=== PATIENT | female | born 1930 | race Asian ===

== ENCOUNTER → 2016-10-30 | Outpatient (CLI) | payer MEDICARE, MEDICAID ==
[~2016-10-30] MED LIST: ASPI-535; DOXA2TAB61; ESOM40CA; ISOS60TA52; NIT3; VERA120T; [UNRECOGNIZED DRUG - CODE]
--- NOTE | 2016-10-30 10:32 | RADRPT ---
PROCEDURE: XR right knee. CLINICAL INDICATION: Knee pain TECHNIQUE: AP weightbearing, PA weightbearing, lateral weightbearing and sunrise views are availa ble for review. are available for review. COMPARISON: None available FINDINGS: There is calcific enthesopathy involving the anterior superior aspect of the patella. There is moder ate to severe osteoarthrosis involving the lateral tibial femoral compartment and mild osteoarthrosi s involving the medial tibial femoral compartment and the patellofemoral compartment. This is associ ated with joint space narrowing, subchondral sclerosis and osteophytosis. The osseous structures are otherwise normal in mineralization, architecture and alignment. No fract ures are identified. No osseous lesions are identified. The soft tissues are unremarkable. IMPRESSION: Calcific enthesopathy involving the anterior superior and anterior inferior aspect of the patella. Moderate to severe osteoarthrosis involving the lateral tibial femoral compartment and mild osteoart hrosis involving the medial tibial femoral compartment and the patellofemoral compartment. RPTAT: HGDB .Toño Sosa MD, MD Date Time Electronically viewed and signed by .Toño Sosa MD, on 10/30/2016 10:32 .B/
== END | disposition home or self-care (01) ==
LOC: HKI 09:05
PROVIDERS: ATTEND Orthopaedic Surgery
DX: M17.0 Bilateral primary osteoarthritis of knee (principal); M25.561 Pain in right knee; M25.562 Pain in left knee
CPT/HCPCS: 73564; G0463

== ENCOUNTER → 2016-12-11 | Outpatient (CLI) | payer MEDICARE, MEDICAID ==
[~2016-12-11] MED LIST changes: +ALEN35TA23 PO; +ATEN100T PO; +ATEN50TA PO; +CRES10 PO; +HYDR-2458 PO; +ISOS30TA5 PO; +NIFE30TA60 PO; +OMEP40CA6 PO; +PRED5 PO; +RANI150T5 PO; +TRAM50TA2 PO
--- NOTE | 2016-12-11 12:12 | RADRPT ---
PROCEDURE: Limited x-ray of both lower extremities. CLINICAL INDICATION: Bilateral leg pain. TECHNIQUE: Single frontal view of both lower extremities was obtained from the hips to the calves. COMPARISON: None. FINDINGS: The hips are not well seen but appear grossly normal with no displaced fracture or dislocation. The re are degenerative changes of both knees with right lateral joint compartment narrowing and left me dial joint compartment narrowing. IMPRESSION: 1. Grossly normal hips. 2. Moderate degenerative changes of both knees. RPTAT: QQ .Jay Penny MD, MD Date Time Electronically viewed and signed by .Jay Penny MD, MD on 12/11/2016 12:11 .R/
== END | disposition home or self-care (01) ==
LOC: HKI 09:13
PROVIDERS: ATTEND Orthopaedic Surgery
DX: M25.561 Pain in right knee (principal); M17.11 Unilateral primary osteoarthritis, right knee
CPT/HCPCS: 77073; G0463

== ENCOUNTER 2016-12-17 09:04 | Inpatient (IN) | payer MEDICARE, OTHER ==
[2016-12-11 12:30] VITALS: BMI 30.1
[~2016-12-17] VITALS: Ht 149.9 cm; Wt 66.7 kg
[2016-12-17] VITALS (27 sets, daily range): BP systolic 145–177; BP diastolic 66–90; PULSE 56–77; RESP 12–17; Ht 149.9 cm; Wt 66.7 kg
[~2016-12-17 09:04] MED LIST changes: -ATEN50TA PO; +CEFAZOLIN 1 GM INJ ONE; +DEXAMETHASONE 4 MG/ML 1 ML INJ ONE; -DOXA2TAB61; +EPHEDrine SULFATE 50 MG/5 ML SYG ONE; -ESOM40CA; +ETOMIDATE 20 MG INJ ONE; +FENTAnyl 50 MCG/ML VIAL ONE; +GLYCOPYRROLATE 0.4 MG INJ ONE; -ISOS30TA5 PO; +MIDAZOLAM 1 MG/ML 2 ML INJ ONE; +NEOSTIGMINE 3 MG/3 ML SYRINGE ONE; -NIT3; -OMEP40CA6 PO; +ONDANSETRON 4 MG INJ ONE; +PROPOFOL 1000 MG INJ ONE; +PROPOFOL 20 ML ONE; +ROCURONIUM 50 MG INJ ONE; -VERA120T; -[UNRECOGNIZED DRUG - CODE]
[2016-12-17] MEDS ORDERED: ATEN50TA PO (09:25)
[2016-12-17] MEDS ORDERED: ISOS30TA5 PO (09:27)
[2016-12-17] MEDS ORDERED: OMEP40CA6 PO (09:27)
[2016-12-17] MEDS ORDERED: VANCOMYCIN 1 GM INJ ONE ×2 (10:47→11:07)
[2016-12-17] MEDS ORDERED: SODIUM CL BACTERIOSTATIC 30 ML INJ ONE (10:47)
[2016-12-17] MEDS ORDERED: POLYMYXIN B 500000 UNIT INJ ONE (10:47)
[2016-12-17] MEDS ORDERED: BACITRACIN 50000 UNITS INJ ONE (11:09)
--- NOTE | 2016-12-17 11:20 | HPN ---
Date/Time of Note Date/Time of Note DATE: 12/17/16 TIME: 11:19 Interval H&P Admission Note Pt. seen H&P reviewed: No system changes No change from H&P on 12/04/16 by JH Alegria MD Dec 17, 2016 11:20
[2016-12-17] MEDS ORDERED: LACTATED RINGER'S 1,000 ML IV SCH (11:30)
[2016-12-17] MEDS ORDERED: TRANEXAMIC ACID 680 MG in SOD CHLORIDE 0.9% 93.2 ML IV ONE (11:30)
[2016-12-17] MEDS ORDERED: TRANEXAMIC ACID 680 MG in SOD CHLORIDE 0.9% 100 ML IVPB ONE (11:30)
[2016-12-17] MEDS ORDERED: PAIN COCKTAIL-CEFUROXIME IRR ONE ×7 (11:30)
[2016-12-17] MEDS ORDERED: EXPAREL NOTE (BUPIVICAINE LIPOSOMAL) XX SCH (11:30)
[2016-12-17] MEDS ORDERED: CELECOXIB 400 MG PO X1 DOSE PO ONE (11:30)
[2016-12-17] MEDS ORDERED: traMADOL 50 MG TAB X 1 DOSE PO ONE (11:30)
[2016-12-17] MEDS ORDERED: PREGABALIN 300 MG PO X1 PO ONE (11:30)
[2016-12-17] MEDS ORDERED: oxyCODONE (CR) 10 MG TAB [oxyCONTIN] X1 DOSE PO ONE (11:30)
[2016-12-17] MEDS ORDERED: BUPIVACAINE LIPOSOME/PF 266 MG/20 ML VIAL INFIL ONE (11:30)
[2016-12-17] MEDS ORDERED: CEFAZOLIN 2GM/50 ML (PMX) 50 ML X1 BEFORE INCISION IVPB ONE (11:30)
[2016-12-17] MEDS: traMADol 50 MG TAB PO SCH ×2 (12:00→18:00)
[2016-12-17] MEDS ORDERED: ONDANSETRON 4 MG INJ IV PRN ×2 (12:30→14:30)
[2016-12-17] MEDS ORDERED: MEPERIDINE 25 MG INJ IV PRN (12:30)
[2016-12-17] MEDS ORDERED: hydrALAzine 20 MG INJ IV PRN (12:30)
[2016-12-17] MEDS ORDERED: DIPHENHYDRAMINE 50 MG INJ IV PRN (12:30)
[2016-12-17] MEDS ORDERED: EPHEDrine SULFATE 50 MG/5 ML SYG IV PRN (12:30)
[2016-12-17] MEDS ORDERED: MIDAZOLAM 1 MG/ML 2 ML INJ IV PRN (12:30)
[2016-12-17] MEDS ORDERED: TRIMETHOBENZAMIDE 100 MG/ML VIAL IM PRN (12:30)
[2016-12-17] MEDS ORDERED: HYDROmorphONE (0.2 MG/ML) 10ML SYG IV PRN ×3 (12:30)
[2016-12-17] MEDS ORDERED: FENTAnyl 50 MCG/ML VIAL IV PRN ×2 (12:30)
[2016-12-17] MEDS ORDERED: LABETALOL HCL 20MG INJ IV PRN (12:30)
[2016-12-17] MEDS: LACTATED RINGER'S 1,000 ML IV SCH ×2 (14:11→20:28)
--- NOTE | 2016-12-17 14:21 | OPR ---
Date/Time of Note Date/Time of Note DATE: 12/17/16 TIME: 14:19 Operative Report Free Text/Dictation Dictation # [id number] Procedure Date: Dec 17, 2016 Preoperative Diagnosis Right Knee OA Postoperative Diagnosis Same Operation Performed Right TKA Surgeon: JH CHATTERJEE MD medical receptionist medical assistant: CHRIS LUCAS PA-C Anesthesia: general, spinal Anesthesiologist: Ji Yan M.D. Tourniquet Time: 83 minutes Estimated Blood Loss: 10 - 50 ml's Specimens Bone and soft tissue Tubes/Drains Hemovac x 1 Complications: None Pt Condition Post Procedure: stable Disposition: PACU JH CHATTERJEE MD Dec 17, 2016 14:21
[2016-12-17] MEDS ORDERED: HYDROmorphONE 1 MG/ML SYG IV PRN (14:30)
[2016-12-17] MEDS: CEFAZOLIN 2 GM/50 ML (PMX) 50 ML IVPB SCH ×2 (14:30→23:08)
[2016-12-17] MEDS ORDERED: DIPHENHYDRAMINE 25 MG CAP PO PRN (14:30)
[2016-12-17] MEDS ORDERED: oxyCODONE 5 MG TAB PO PRN (14:30)
[2016-12-17] MEDS ORDERED: NA PHOSPHATE/BIPHOS 133 ML ENEMA PR PRN (14:30)
[2016-12-17] MEDS ORDERED: MAGNESIUM HYDROXIDE 30ML CUP PO PRN (14:30)
[2016-12-17] MEDS ORDERED: ASPIRIN (EC) 325 MG TAB PO ONE (14:30)
[2016-12-17] MEDS ORDERED: NACL 0.9% 3 ML SYG IV SCH (14:30)
[2016-12-17] MEDS ORDERED: BISACODYL 10 MG SUPP PR PRN (14:30)
[2016-12-17 14:38] LABS: HEMATOCRIT 34.3 % (37.0-47.0)
--- NOTE | 2016-12-17 14:48 | PN ---
Date/Time of Note Date/Time of Note DATE: 12/17/16 TIME: 14:22 Assessment/Plan Lines/Catheters IV Catheter Type (from Nrsg): Peripheral IV Assessment/Plan Assessment/Plan Stable in PACU, s/p right TKA -cont abx until drains removed -pain meds as needed -ASA/SCDs for DVT prophylaxis -OOB with PT -check AM labs -monitor drain -d/c rubin in AM XR of the right knee is pending at this time Subjective 24 Hr Interval Summary Stable in PACU. Moving extremities. Drowsy from anesthesia. Denies pain. Exam/Review of Systems Vital Signs Vitals Vital Signs Date Time Temp Pulse Resp B/P Pulse Ox O2 Delivery O2 Flow Rate FiO2 12/17/16 10:16 97.8 61 16 158/69 95 Room Air Intake and Output 12/16/16 12/16/16 12/17/16 15:00 23:00 07:00 Intake Total 0 ml Balance 0 ml Exam Free Text/Dictation Hemovac: Minimal Dressing dry Incision clean, dry, and intact without redness or drainage Thigh soft 5/5 Quadriceps, Tibialis Anterior, EHL, Gastroc, Soleus, Peroneals Normal sensation Palpable DT/PT, CR <2 sec No distal edema CHRIS LUCAS PA-C Dec 17, 2016 14:48
[2016-12-17] MEDS: FENTAnyl 50 MCG/ML VIAL IV PRN ×2 (14:50→15:38)
[2016-12-17 14:54] LABS: CALCIUM 8.1 mg/dl (8.4-10.2); CREATININE 0.84 mg/dl (0.44-1.00); POTASSIUM 4.7 mmol/L (3.5-5.1)
--- NOTE | 2016-12-17 14:58 | RADRPT ---
PROCEDURE: Right knee x-ray CLINICAL INDICATION: PACU Post Op TECHNIQUE: Two views of the right knee were obtained. COMPARISON: Right knee 10/30/2016. FINDINGS: The patient is status post total knee replacement . There are postsurgical changes in the subcutane ous soft tissues. There is a surgical drain in place. There is normal mineralization. No acute fracture or dislocation is seen. IMPRESSION: 1. Status post total right knee arthroplasty with a surgical drain noted in the patellofemoral joint space. 2. Subcutaneous emphysema and skin emely related to recent surgery. RPTAT:AAJJ Physician Haydee Date Time Electronically viewed and signed by Physician Haydee on 12/17/2016 14:57 ALECIA/
--- NOTE | 2016-12-17 15:01 | OPR ---
DATE OF OPERATION: 12/17/2016 PREOPERATIVE DIAGNOSIS: Right knee osteoarthritis. POSTOPERATIVE DIAGNOSIS: Right knee osteoarthritis. OPERATION PERFORMED: Right total knee arthroplasty. SURGEON: Jh Hawthorne MD REMOTE ENCODING OPERATIONS SUPERVISOR: ELVIA Ware COMPONENTS USED: DePuy Attune size 3 narrow femoral component, size 2 tibial baseplate, 7 mm polyet hylene insert, and a 29 patellar button. ANESTHESIA: Spinal plus general endotracheal intubation, plus periarticular injection. ANESTHESIOLOGIST: Ji Yan MD TOURNIQUET TIME: 83 minutes. ESTIMATED BLOOD LOSS: 50 mL. INTRAVENOUS FLUIDS: 2200 mL crystalloid. SPECIMENS: Bone and soft tissue. DRAINS: Hemovac x1. COMPLICATIONS: None. DISPOSITION: The patient tolerated the procedure well and was taken to the recovery room in stable condition. INDICATIONS: The patient is an 86-year-old woman who has had progressive worsening pain in the [facility] t knee with radiographic evidence of severe osteoarthritis. She has failed nonsurgical means of amarjit atment to control her pain including activity modifications, pain medications, intra-articular injec tions and ambulatory assist devices. Despite these measures, she has had worsening pain. I felt sh e would benefit from a total knee arthroplasty. The risks, benefits, and alternatives of the procedure were explained in detail to the patient. I e xplained the risks of the surgery to include but not be limited to, bleeding and possible need for b lood transfusion; infection; pain; stiffness; neurovascular injury with possible numbness, weakness, and/or paralysis anywhere from the knee down to the toes; fracture; instability; dislocation; wear and/or loosening of the prosthesis and possible need for future revision; blood clots; pulmonary emb olism; and anesthetic complications such as heart attack, stroke, GI bleed, pneumonia, and/or . Ample time was allowed for the patient to ask questions, all of which were addressed and answered. The patient understood the risks involved and wished to proceed. Informed consent was signed prior to the procedure. PROCEDURE: The patient's right knee was initialed with a marking pen in the preoperative area to id entify the correct operative site. The patient was brought to the operating room and transferred fr the [facility] to the operating table where a spinal anesthetic was administered. The patie nt was then anesthetized and intubated. A Drummond catheter was placed. A timeout was performed to co nfirm that the right leg was the correct operative site. The patient was given 2 g of Ancef within o ne hour prior to the procedure. A tourniquet was placed on the operative proximal thigh. The opera tive knee and lower extremity were prepped and draped in the usual sterile fashion. The operative l ower extremity was elevated and exsanguinated with an Esmarch tourniquet. The proximal thigh tourni quet was inflated to 300 mmHg. The knee was flexed. A midline incision was made and carried down through the subcutaneous tissue a nd fat with sharp dissection. Limited medial and lateral flaps were raised. A median parapatellar arthrotomy approach was performed. Synovial fluid was normal in color and consistency. The patella was everted and the knee flexed. There were severe tricompartmental osteoarthritic changes noted. A medial release was performed at the joint line to the midcoronal plane. The ACL and PCL and remn ants of the menisci were excised. The OrthAlign navigation device was then pinned into place on the distal femur and set to 0 degrees of varus/valgus and 3 degrees of flexion. The distal cutting blo ck was pinned into place and the oscillating saw was used to make the cut. The tibia was subluxed anteriorly. The tibial OrthAlign navigation device was then pinned into plac e such that the proximal portion of the guide was centered over the junction of the medial and middl e third of the tibial tubercle with the proximal probe placed at the posterior aspect of the ACL dona tprint. The guide was then set to 0 degrees varus/valgus and 3 degrees of posterior slope. The cut ting block was then pinned into place and the oscillating saw was used to make the cut. The tibia w as sized. The extension gap was checked and accommodated the 7 mm spacer block with the knee in ful l extension. There was no varus or valgus instability. At this point, the femur was sized with the posterior referencing guide. Two holes were drilled in 3 degrees of external rotation. The two holes were in line with the transepicondylar axis, perpendi cular to Circle's line, and in line with the tibial cutoff jig brought up with the knee flexed 90 degrees and tensed with 2 lamina spreaders, suggesting the femoral rotation was correct. The four- in-one cutting block was pinned into place. The anterior and posterior cuts and chamfer cuts were m erick with the oscillating saw. The flexion gap was checked and accommodated the 7 mm spacer block at 90 degrees. There was no varus or valgus instability, suggesting the flexion and extension gaps wer e now equal. The central box was cut out on the femur. The tibia was drilled and punched in proper rotation. Tri al components were placed into position with a trial insert. The patella was cut from 19 mm down to 12 mm and sized. Three holes were drilled and the trial button placed in position. With all the t rials now in place, the knee was taken through range of motion and came to full extension as evidenc ed by the fact that with the foot on my abdomen and axial loading, there was no tendency for the kne e to flex. The knee was able to be flexed to 125 degrees with good patellar tracking with no latera l tilt or subluxation. At this point, I was satisfied with the overall range of motion, stability, and patellar tracking. The trials were removed. The real components were opened. Two bags of cement were mixed, one with and one without premixed antibiotic. The knee was irrigated with antibiotic saline and sucked dry. Once the cement was in a doughy stage, the real components were cemented into place. The knee was held in full extension, and the patellar component was held with a patellar clamp. All excess cemen t was removed with curettes. As the cement was hardening, the synovial/capsular layer was infiltrat ed with a mixture of 150 mg of 0.5% Bupivacaine, 8 mg of Duramorph, 300 mcg of epinephrine, 30 mg of Toradol, 100 mcg of clonidine, 750 mg of cefuroxime and 86 mL of normal saline, followed by an inje ction of 266 mg of liposomal Bupivacaine. A Hemovac drain was placed in the deep portion of the wound and brought out the anterolateral thigh. Once the cement was completely hardened, the trial liner was removed, and the real insert was open ed. The tourniquet was let down, and there was good hemostasis. The knee was then irrigated with a mixture of Betadine/saline and then antibiotic saline with pulsatile lavage. The real insert was i mpacted into the tibia and reduced onto to the femur. The arthrotomy was closed with a few interrupted #1 Ethibond in a [id number]-joogc fashion, and then closed in a watertight fashion with a running #2 Stratafix suture. Knee flexion was checked against gravity and came to 125 degrees. The subcutaneous layer was irrigated and closed with 2-0 Stratafi x, and then 3-0 Vicryl and then emely on the skin. The wound was covered with an occlusive dressi ng, and secured with cast padding and a bias dressing. The drain was secured with 3-0 nylon. The sponge and needle counts were correct at the end of the case. The patient was then awakened, ex tubated, and taken to the recovery room in stable condition. Dictated By: JH HAM/NTS Conf#: [id number] DID#: [id number]
--- NOTE | 2016-12-17 15:08 | RADRPT ---
PROCEDURE: Intraoperative imaging of the right knee with fluoroscopy. CLINICAL INDICATION: Right knee pain. Intraoperative. TECHNIQUE: 2 images of the right knee were obtained in the operating room with an image intensifie r. No radiologist was in attendance. 0.8 minutes of fluoroscopy time was used. COMPARISON: 10/30/2016 FINDINGS: Images demonstrate components of a total right knee arthroplasty. IMPRESSION: 1. Intraoperative imaging of the right knee. RPTAT: QQ .Jay Penny MD, MD Date Time Electronically viewed and signed by .Jay Penny MD, MD on 12/17/2016 15:08 .R/
[2016-12-17] MEDS ORDERED: TRANEXAMIC ACID 670 MG in SOD CHLORIDE 0.9% 100 ML IVPB ONE ×2 (17:30→20:30)
[2016-12-17] MEDS: ACETAMINOPHEN 1000MG/100ML IV 100 ML IVPB SCH (18:09)
[2016-12-17] MEDS: PANTOPRAZOLE (EC) 40 MG TAB PO SCH (18:09)
--- NOTE | 2016-12-17 18:55 | CONS ---
DATE OF ADMISSION: 12/17/2016 DATE OF CONSULTATION: 12/17/[address] Hawthorne: Thank you very much for allowing me to evaluate the above patient who just underwent right total kne e arthroplasty. HISTORICAL EVENTS: As you well know, this patient has had progressive disabling pain involving her right knee and elected to proceed with surgery today. In recovery postoperatively she is a bit leth argic, but is easily aroused. Denies cough, wheezing, shortness of breath, chest or abdominal pain. PAST MEDICAL HISTORY: 1. Polymyalgia rheumatica. 1. Hypertension. 2. Gout. 3. History of atherosclerotic heart disease, but when questioning the patient via a mask former, she indicates she has no heart disease. 4. Hysterectomy. 5. Appendectomy. SOCIAL HISTORY: She does not drink. She does not smoke. FAMILY HISTORY: Importantly, there is no history of coronary artery disease, hypertension or diabe oliva. ALLERGIES: NONE. MEDICATIONS: 1. Atenolol 50 mg per day. 2. Crestor 10 per day. 3. Ferrous sulfate 1 tablet per day. 4. Gabapentin 100 mg at night. 5. Isosorbide 60 mg daily. 6. Nifedipine 30 mg per day. 7. Omeprazole 40 mg per day. 8. Prolia 60 mg every 6 months. 9. Ranitidine 150 mg daily. 10. Tramadol 50 mg p.r.n. 11. Tylenol extra strength as needed. PHYSICAL EXAMINATION: GENERAL: Slightly lethargic female in no acute distress. VITAL SIGNS: BP 122/80, pulse 70, respirations are 20, she was afebrile. EYES: Extraocular muscles were full. NOSE, MOUTH, AND THROAT: Normal. NECK: Supple. There was no jugular venous distention, thyroid enlargement or adenopathy. LUNGS: Clear. HEART: Rhythm regular, no murmur. No third or fourth sound. ABDOMEN: Nontender. Liver and spleen were not palpable. No masses or tenderness were noted. EXTREMITIES: No edema. IMPRESSION: 1. Stable postop with right knee replacement. 2. History of hypertension. We will continue her BP meds and observe BP throughout. 3. Will evaluate daily for signs and symptoms of thromboembolic disease despite appropriate deep toro ous thrombosis prophylaxis. 4. Hyperlipidemia. We will continue her statin. Dictated By: URI CRUZ MD MR/NTS Conf#: [id number] [facility]#: [id number]
[2016-12-17] MEDS: ATENOLOL 50 MG TAB PO SCH (21:43)
[2016-12-17] MEDS: ATORVASTATIN 40 MG TAB PO SCH (21:43)
[2016-12-17] MEDS: DOCUSATE SODIUM 100 MG CAP PO SCH (21:43)
[2016-12-17] MEDS: PREGABALIN 50 MG CAP PO SCH (21:43)
[2016-12-18 00:15] VITALS: BP 162/77; PULSE 61; RESP 16
[2016-12-18] MEDS: ACETAMINOPHEN 1000MG/100ML IV 100 ML IVPB SCH ×3 (00:29→12:28)
[2016-12-18] MEDS: PANTOPRAZOLE (EC) 40 MG TAB PO SCH ×2 (05:02→18:04)
[2016-12-18] MEDS: traMADol 50 MG TAB PO SCH ×5 (05:02→23:42)
[2016-12-18 05:34] LABS: HEMATOCRIT 35.3 % (37.0-47.0); HEMOGLOBIN 11.5 g/dl (12.0-16.0)
[2016-12-18 05:48] LABS: POTASSIUM 4.6 mmol/L (3.5-5.1)
[2016-12-18 05:50] LABS: CREATININE 0.79 mg/dl (0.44-1.00)
[2016-12-18 05:51] LABS: CALCIUM 8.1 mg/dl (8.4-10.2)
[2016-12-18] MEDS: CEFAZOLIN 2 GM/50 ML (PMX) 50 ML IVPB SCH (06:00)
[2016-12-18] MEDS: LACTATED RINGER'S 1,000 ML IV SCH (06:00)
[2016-12-18 07:52] VITALS: BP 148/68; RESP 18
--- NOTE | 2016-12-18 08:45 | PN ---
Date/Time of Note Date/Time of Note DATE: 12/18/16 TIME: 08:43 Assessment/Plan Lines/Catheters IV Catheter Type (from Nrsg): Peripheral IV Drummond in Place (from Nrsg): No Assessment/Plan Assessment/Plan Stable POD #1, s/p right TKA -d/c abx -pain meds as needed -ASA/SCDs for DVT prophylaxis -OOB with PT -drain removed -check AM labs -d/c planning. Will plan to transfer to [facility] upon discharge Subjective 24 Hr Interval Summary No acute overnight events. Denies any pain. Did not start PT yet. VSS, afebrile. Will plan to go to [facility] upon discharge. Exam/Review of Systems Vital Signs Vitals Vital Signs Date Time Temp Pulse Resp B/P Pulse Ox O2 Delivery O2 Flow Rate FiO2 12/18/16 07:52 97.7 61 18 148/68 100 12/18/16 00:34 2.0 12/18/16 00:15 Nasal Cannula Intake and Output 12/17/16 12/17/16 12/18/16 15:00 23:00 07:00 Intake Total 2206.8 ml 240 ml 1525 ml Output Total 150 ml 550 ml 1500 ml Balance 2056.8 ml -310 ml 25 ml Exam Free Text/Dictation Hemovac: 100cc Dressing dry Incision clean, dry, and intact without redness or drainage Thigh soft 5/5 Quadriceps, Tibialis Anterior, EHL, Gastroc, Soleus, Peroneals Normal sensation Palpable DT/PT, CR <2 sec No distal edema Results Result Diagram: 12/18/16 0423 12/18/16 0423 CHRIS LUCAS PA-C Dec 18, 2016 08:45
[2016-12-18] MEDS: CELECOXIB 200 MG CAP PO SCH (09:41)
[2016-12-18] MEDS: ASPIRIN (EC) 325 MG TAB PO SCH ×2 (09:41→20:23)
[2016-12-18] MEDS: DOCUSATE SODIUM 100 MG CAP PO SCH ×2 (09:42→20:23)
[2016-12-18] MEDS: ATENOLOL 50 MG TAB PO SCH ×2 (09:42→20:24)
[2016-12-18] MEDS: PREGABALIN 50 MG CAP PO SCH ×2 (09:42→20:24)
[2016-12-18] MEDS: ISOSORBIDE MONONITRATE(SR)30 MG TAB PO SCH (09:42)
[2016-12-18] MEDS: NIFEdipine (XL) 30 MG TAB PO SCH (09:42)
[2016-12-18] MEDS: oxyCODONE 5 MG TAB PO PRN (10:35)
--- NOTE | 2016-12-18 12:03 | CONS ---
Date/Time of Note Date/Time of Note DATE: 12/18/16 TIME: 12:00 Assessment/Plan Assessment/Plan Chief Complaint/Hosp Course 1. she is 1 day post op a R TKR . She is doing well . 2. continue current Medication and PT . Problems: Consultation Date/Type/Reason Admit Date/Time Dec 17, 2016 at 09:04 Initial Consult Date 24 HR Interval Summary Free Text/Dictation She is awake and alert . She is 1 day post op a R TKA . She has no complaints . Constitutional: improved, no complaints Exam/Review of Systems Vital Signs Vitals Vital Signs Date Time Temp Pulse Resp B/P Pulse Ox O2 Delivery O2 Flow Rate FiO2 12/18/16 07:52 97.7 61 18 148/68 100 12/18/16 00:34 2.0 12/18/16 00:15 Nasal Cannula Intake and Output 12/17/16 12/17/16 12/18/16 14:59 22:59 06:59 Intake Total 2206.8 ml 240 ml 1525 ml Output Total 150 ml 550 ml 1500 ml Balance 2056.8 ml -310 ml 25 ml Exam Constitutional: alert, oriented, well developed Respiratory: clear to auscultation Cardiovascular: regular rate and rhythm Gastrointestinal: soft Musculoskeletal: nl extremities to inspection Results Result Diagram: 12/18/16 0423 12/18/16 0423 Results 24 hrs Laboratory Tests Test 12/17/16 14:29 12/18/16 04:23 Hemoglobin 11.0 L 11.5 L Hematocrit 34.3 L 35.3 L Sodium Level 136 136 Potassium Level 4.7 4.6 Chloride Level 107 102 Carbon Dioxide Level 22 24 Anion Gap 12 15 Blood Urea Nitrogen 17 Creatinine 0.84 0.79 Glucose Level 125 137 Calcium Level 8.1 L 8.1 L Medications Medications Current Medications Miscellaneous Information 1 ea NOTE XX ; Start 12/17/16 at 11:30; Stop 12/21/16 at 11:29 Atenolol (Tenormin) 50 mg BID PO Last administered on 12/18/16 09:42; Admin Dose 50 MG; Start 12/17/16 at 21:00 Isosorbide Mononitrate (Imdur) 30 mg DAILY PO Last administered on 12/18/16 09 :42; Admin Dose 30 MG; Start 12/18/16 at 09:00 Nifedipine (Procardia Xl) 30 mg DAILY PO Last administered on 12/18/16 09:42; Admin Dose 30 MG; Start 12/18/16 at 09:00 Atorvastatin Calcium 40 mg 40 mg DAILY@21 PO Last administered on 12/17/16 21: 43; Admin Dose 40 MG; Start 12/17/16 at 21:00 Lactated Ringer's (Lr) 1,000 ml @ 125 mls/hr Q8H IV Last administered on 06:00; Admin Dose 125 MLS/HR; Start 12/17/16 at 14:11 Celecoxib 200 mg 200 mg DAILY PO Last administered on 12/18/16 09:41; Admin Dose 200 MG; Start 12/18/16 at 09:00 Acetaminophen (Ofirmev 1000mg/ 100ml Iv) 100 ml @ 400 mls/hr Q6 IVPB Last administered on 12/18/16 05:01; Admin Dose 400 MLS/HR; Start 12/17/16 at 18:00 ; Stop 12/18/16 at 17:59 Tramadol HCl (Ultram) 50 mg Q6 PO Last administered on 12/18/16 05:02; Admin Dose 50 MG; Start 12/17/16 at 12:00; Stop 12/20/16 at 11:59 Oxycodone HCl (Roxicodone) 5 mg Q4H PRN PO PAIN LEVEL 1-3; Start 12/17/16 at 14 :30 Oxycodone HCl (Roxicodone) 10 mg Q4H PRN PO PAIN LEVEL 4-7 Last administered on 12/18/16 10:35; Admin Dose 10 MG; Start 12/17/16 at 14:30 Hydromorphone HCl (Dilaudid) 1 mg Q3H PRN IV PAIN LEVEL 8-10; Start 12/17/16 at 14:30 Ondansetron HCl (Zofran Inj) 4 mg Q6H PRN IV NAUSEA AND/OR VOMITING; Start at 14:30 Bisacodyl (Dulcolax Supp) 10 mg Q12H PRN SC CONSTIPATION; Start 12/17/16 at 14: 30 Magnesium Hydroxide (Milk Of Mag) 30 ml BID PRN PO CONSTIPATION; Start at 14:30 Sodium Biphosphate/ Sodium Phosphate (Fleet Enema) 133 ml DAILY PRN SC CONSTIPATION; Start 12/17/16 at 14:30 Docusate Sodium (Colace) 100 mg BID PO Last administered on 12/18/16 09:42; Admin Dose 100 MG; Start 12/17/16 at 21:00 Diphenhydramine HCl (Benadryl) 25 mg Q6H PRN PO PRURITUS; Start 12/17/16 at 14: 30 Aspirin (Ecotrin) 325 mg BID PO Last administered on 12/18/16 09:41; Admin Dose 325 MG; Start 12/18/16 at 09:00 Pantoprazole (Protonix Tab) 40 mg BID@,18 PO Last administered on 12/18/16 05:02; Admin Dose 40 MG; Start 12/17/16 at 18:00 Pregabalin (Lyrica) 50 mg BID PO Last administered on 12/18/16 09:42; Admin Dose 50 MG; Start 12/17/16 at 21:00 ALEXANDER STANLEY MD Dec 18, 2016 12:03
[2016-12-18 19:39] VITALS: BP 129/58; RESP 18
[2016-12-18] MEDS: ATORVASTATIN 40 MG TAB PO SCH (20:24)
[2016-12-19 05:16] LABS: HEMATOCRIT 32.2 % (37.0-47.0); HEMOGLOBIN 10.2 g/dl (12.0-16.0)
[2016-12-19 05:36] LABS: CALCIUM 8.4 mg/dl (8.4-10.2); CREATININE 0.93 mg/dl (0.44-1.00)
[2016-12-19] MEDS: PANTOPRAZOLE (EC) 40 MG TAB PO SCH ×2 (06:04→17:49)
[2016-12-19] MEDS: traMADol 50 MG TAB PO SCH ×3 (06:04→17:50)
[2016-12-19] MEDS: ASPIRIN (EC) 325 MG TAB PO SCH ×2 (09:03→21:39)
[2016-12-19] MEDS: PREGABALIN 50 MG CAP PO SCH ×2 (09:03→21:40)
[2016-12-19] MEDS: CELECOXIB 200 MG CAP PO SCH (09:03)
[2016-12-19] MEDS: DOCUSATE SODIUM 100 MG CAP PO SCH ×2 (09:03→21:39)
[2016-12-19 09:04] VITALS: BP 119/59; RESP 18
[2016-12-19] MEDS: oxyCODONE 5 MG TAB PO PRN (09:04)
[2016-12-19] MEDS: ISOSORBIDE MONONITRATE(SR)30 MG TAB PO SCH (09:07)
[2016-12-19] MEDS: NIFEdipine (XL) 30 MG TAB PO SCH (09:07)
[2016-12-19] MEDS: ATENOLOL 50 MG TAB PO SCH ×2 (09:07→21:40)
--- NOTE | 2016-12-19 10:00 | PDOCDIS ---
Discharge Instructions DIAGNOSIS Discharge Diagnosis: s/p right TKA CONDITION Patient Condition: Good HOME CARE INSTRUCTIONS: Diet Instructions: Regular ACTIVITY: Activity Restrictions: Slowly Increase Activity Rest between Activity Avoid heavy lifting Do not Drive Do not operate Machinery Do not operate Power Tool Avoid Heavy Housework Keep Limb Elevated Bathing Restrictions: Shower FOLLOW UP/APPOINTMENTS Appointments follow up in the office on 12/27/16 OTHER ORDERS: Other Orders: S/P TKA Physical Therapy: Three times per week at home x 2 weeks Daily in Rehab/SNF WB STATUS: WBAT 1. Strengthening exercises for both upper and un-operated lower extremities. 2. Gait training with front wheeled walker 3. Active range of motion exercises to operative knee. 4. When not working on knee range of motion exercises, distal towel roll under operative ankle/distal calf to promote full extension. 5. DO NOT PUT ANYTHING BEHIND OPERATIVE KNEE!!! 6. Quadriceps and hamstring strengthening. 7. May switch to cane in contra lateral hand 6 weeks after surgery. 8. Physical Therapy can open case if nursing is not available. 9. Use Ice Machine as instructed from date of surgery while at rest 3X/day. 10. Patient requires mobile SCDs to reduce risk of developing DVT following TKA. Patient will use the mobile SCDs for 30 days postoperatively. Bathing assistance by home health aide twice weekly if Medicare patient. Occupational Therapy: Evaluation for assistive devices and ADL training. Wound Care: Keep incision dry & covered with Tegaderm until first visit with Dr. Hawthorne Anticoagulation Orders: Enteric Coated Aspirin 325 mg po bid x 6 weeks from date of surgery Follow-up:Call for an appointment with Dr. Hawthorne in 1 week after discharged from hospital at DME Orders: FWLacie, 3-in-1 Commode, Polar ice machine, Mobile SCDs CHRIS LUCAS PA-C Dec 19, 2016 10:00
[2016-12-19] MEDS ORDERED: TRAM50TA2 PO (10:03)
[2016-12-19] MEDS ORDERED: ASPI325T32 PO (10:03)
[2016-12-19] MEDS ORDERED: PREG50CA PO (10:03)
[2016-12-19] MEDS ORDERED: HYDR-905 PO (10:03)
--- NOTE | 2016-12-19 10:35 | PN ---
Date/Time of Note Date/Time of Note DATE: 12/19/16 TIME: 10:34 Assessment/Plan Lines/Catheters IV Catheter Type (from Nrsg): Saline Lock Drummond in Place (from Nrsg): No Assessment/Plan Assessment/Plan Stable POD #2, s/p right TKA -pain meds as needed -ASA/SCDs -OOB with PT -dressing changed -stable for transfer to [facility] today -d/c to [facility] today or tomorrow after speaking with her family Subjective 24 Hr Interval Summary No acute overnight events. Mild pain. Progressing well with PT. VSS, afebrile. Will go to [facility] upon discharge. Exam/Review of Systems Vital Signs Vitals Vital Signs Date Time Temp Pulse Resp B/P Pulse Ox O2 Delivery O2 Flow Rate FiO2 12/19/16 09:04 97.5 67 18 119/59 95 12/18/16 14:46 21 12/18/16 00:34 2.0 12/18/16 00:15 Nasal Cannula Intake and Output 12/18/16 12/18/16 12/19/16 15:00 23:00 07:00 Intake Total 525 ml 920 ml 720 ml Output Total 1350 ml 900 ml Balance 525 ml -430 ml -180 ml Exam Free Text/Dictation Dressing dry Incision clean, dry, and intact without redness or drainage Thigh soft 5/5 Quadriceps, Tibialis Anterior, EHL, Gastroc, Soleus, Peroneals Normal sensation Palpable DT/PT, CR <2 sec No distal edema Results Result Diagram: 12/19/16 0415 12/19/16 0415 CHRIS LUCAS PA-C Dec 19, 2016 10:35
--- NOTE | 2016-12-19 11:16 | CONS ---
Date/Time of Note Date/Time of Note DATE: 12/19/16 TIME: 11:15 Assessment/Plan Assessment/Plan Chief Complaint/Hosp Course 1. she is 2 day post op a R TKR . She is doing well . 2. continue current Medication and PT . Problems: Consultation Date/Type/Reason Admit Date/Time Dec 17, 2016 at 09:04 24 HR Interval Summary Free Text/Dictation She is 2 days postop right total knee replacement. She has no complaints. She seems comfortable. Constitutional: no complaints Exam/Review of Systems Vital Signs Vitals Vital Signs Date Time Temp Pulse Resp B/P Pulse Ox O2 Delivery O2 Flow Rate FiO2 12/19/16 09:04 97.5 67 18 119/59 95 12/18/16 14:46 21 12/18/16 00:34 2.0 12/18/16 00:15 Nasal Cannula Intake and Output 12/18/16 12/18/16 12/19/16 15:00 23:00 07:00 Intake Total 525 ml 920 ml 720 ml Output Total 1350 ml 900 ml Balance 525 ml -430 ml -180 ml Exam Constitutional: alert Psych: no complaints Respiratory: clear to auscultation, normal air movement Cardiovascular: regular rate and rhythm Gastrointestinal: non-tender, soft Musculoskeletal: nl extremities to inspection Results Result Diagram: 12/19/16 0415 12/19/16 0415 Results 24 hrs Laboratory Tests Test 12/19/16 04:15 Hemoglobin 10.2 L Hematocrit 32.2 L Sodium Level 137 Potassium Level 4.0 Chloride Level 107 Carbon Dioxide Level 25 Anion Gap 9 # Blood Urea Nitrogen 25 H Creatinine 0.93 Glucose Level 88 # Calcium Level 8.4 Medications Medications Current Medications Miscellaneous Information 1 ea NOTE XX ; Start 12/17/16 at 11:30; Stop 12/21/16 at 11:29 Atenolol (Tenormin) 50 mg BID PO Last administered on 12/19/16 09:07; Admin Dose 50 MG; Start 12/17/16 at 21:00 Isosorbide Mononitrate (Imdur) 30 mg DAILY PO Last administered on 12/19/16 09 :07; Admin Dose 30 MG; Start 12/18/16 at 09:00 Nifedipine (Procardia Xl) 30 mg DAILY PO Last administered on 12/19/16 09:07; Admin Dose 30 MG; Start 12/18/16 at 09:00 Atorvastatin Calcium (Lipitor) 40 mg DAILY@21 PO Last administered on 20:24; Admin Dose 40 MG; Start 12/17/16 at 21:00 Celecoxib (Celebrex) 200 mg DAILY PO Last administered on 12/19/16 09:03; Admin Dose 200 MG; Start 12/18/16 at 09:00 Tramadol HCl (Ultram) 50 mg Q6 PO Last administered on 12/19/16 06:04; Admin Dose 50 MG; Start 12/17/16 at 12:00; Stop 12/20/16 at 11:59 Oxycodone HCl (Roxicodone) 5 mg Q4H PRN PO PAIN LEVEL 1-3; Start 12/17/16 at 14 :30 Oxycodone HCl (Roxicodone) 10 mg Q4H PRN PO PAIN LEVEL 4-7 Last administered on 12/19/16 09:04; Admin Dose 10 MG; Start 12/17/16 at 14:30 Hydromorphone HCl (Dilaudid) 1 mg Q3H PRN IV PAIN LEVEL 8-10; Start 12/17/16 at 14:30 Ondansetron HCl (Zofran Inj) 4 mg Q6H PRN IV NAUSEA AND/OR VOMITING; Start at 14:30 Bisacodyl (Dulcolax Supp) 10 mg Q12H PRN [place] CONSTIPATION; Start 12/17/16 at 14: 30 Magnesium Hydroxide (Milk Of Mag) 30 ml BID PRN PO CONSTIPATION; Start at 14:30 Sodium Biphosphate/ Sodium Phosphate (Fleet Enema) 133 ml DAILY PRN [place] CONSTIPATION; Start 12/17/16 at 14:30 Docusate Sodium (Colace) 100 mg BID PO Last administered on 12/19/16 09:03; Admin Dose 100 MG; Start 12/17/16 at 21:00 Diphenhydramine HCl (Benadryl) 25 mg Q6H PRN PO PRURITUS; Start 12/17/16 at 14: 30 Aspirin (Ecotrin) 325 mg BID PO Last administered on 12/19/16 09:03; Admin Dose 325 MG; Start 12/18/16 at 09:00 Pantoprazole (Protonix Tab) 40 mg BID@06,18 PO Last administered on 12/19/16 06:04; Admin Dose 40 MG; Start 12/17/16 at 18:00 Pregabalin (Lyrica) 50 mg BID PO Last administered on 12/19/16 09:03; Admin Dose 50 MG; Start 12/17/16 at 21:00 ALEXANDER STANLEY MD Dec 19, 2016 11:16
[2016-12-19 20:00] VITALS: BP 147/69; RESP 18
[2016-12-19] MEDS: ATORVASTATIN 40 MG TAB PO SCH (21:40)
[2016-12-20 00:51] VITALS: BP 147/68; PULSE 64; RESP 17
[2016-12-20] MEDS: oxyCODONE 5 MG TAB PO PRN ×2 (01:35→10:02)
[2016-12-20 05:33] LABS: HEMATOCRIT 37.1 % (37.0-47.0); HEMOGLOBIN 12.1 g/dl (12.0-16.0)
[2016-12-20 05:56] LABS: CALCIUM 8.3 mg/dl (8.4-10.2); CREATININE 0.77 mg/dl (0.44-1.00); POTASSIUM 4.3 mmol/L (3.5-5.1)
[2016-12-20] MEDS: traMADol 50 MG TAB PO SCH ×2 (06:39)
[2016-12-20] MEDS: PANTOPRAZOLE (EC) 40 MG TAB PO SCH (06:39)
[2016-12-20 07:32] VITALS: BP 169/70; RESP 20
--- NOTE | 2016-12-20 08:54 | PN ---
Date/Time of Note Date/Time of Note DATE: 12/20/16 TIME: 08:53 Assessment/Plan Lines/Catheters IV Catheter Type (from Nrsg): Peripheral IV [place] in Place (from Nrsg): No Assessment/Plan Assessment/Plan Stable POD #3, s/p right TKA -pain meds as needed -ASA/SCDs for DVT prophylaxis -OOB with PT -dressing changed -transfer to [facility] today -follow up in the office in 1 week Subjective 24 Hr Interval Summary No acute overnight events. Denies significant pain. Progressing well with PT. VSS, afebrile. Will plan to go to [facility] today. Exam/Review of Systems Vital Signs Vitals Vital Signs Date Time Temp Pulse Resp B/P Pulse Ox O2 Delivery O2 Flow Rate FiO2 12/20/16 07:32 98.0 71 20 169/70 97 12/20/16 00:51 Room Air 12/19/16 17:51 21 12/18/16 00:34 2.0 Intake and Output 12/19/16 12/19/16 12/20/16 15:00 23:00 07:00 Intake Total 840 ml Output Total 850 ml Balance -10 ml Exam Free Text/Dictation Dressing dry Incision clean, dry, and intact without redness or drainage Thigh soft 5/5 Quadriceps, Tibialis Anterior, EHL, Gastroc, Soleus, Peroneals Normal sensation Palpable DT/PT, CR <2 sec No distal edema Results Result Diagram: 12/20/16 0415 12/20/16 0415 CHRIS LUCAS PA-C Dec 20, 2016 08:54
[2016-12-20] MEDS: ASPIRIN (EC) 325 MG TAB PO SCH (10:01)
[2016-12-20] MEDS: DOCUSATE SODIUM 100 MG CAP PO SCH (10:01)
[2016-12-20] MEDS: ISOSORBIDE MONONITRATE(SR)30 MG TAB PO SCH (10:02)
[2016-12-20] MEDS: NIFEdipine (XL) 30 MG TAB PO SCH (10:02)
[2016-12-20] MEDS: PREGABALIN 50 MG CAP PO SCH (10:02)
[2016-12-20] MEDS: CELECOXIB 200 MG CAP PO SCH (10:02)
[2016-12-20] MEDS: ATENOLOL 50 MG TAB PO SCH (10:03)
[2016-12-20 10:30] VITALS: BP 126/59; PULSE 69
--- NOTE | 2016-12-20 10:34 | CONS ---
Date/Time of Note Date/Time of Note DATE: 12/20/16 TIME: 10:31 Assessment/Plan Assessment/Plan Chief Complaint/Hosp Course 1. she is 3 days post op a R TKR . She is doing well . Her blood pressure was elevated this morning it will be rechecked after she has been given her blood pressure medication 2. continue current Medication and PT . 3. She is going to be transferred to [facility] today. Problems: Consultation Date/Type/Reason Admit Date/Time Dec 17, 2016 at 09:04 Type of Consultation: medicine 24 HR Interval Summary Free Text/Dictation She is awake and seems comfortable. Constitutional: improved, no complaints Exam/Review of Systems Vital Signs Vitals Vital Signs Date Time Temp Pulse Resp B/P Pulse Ox O2 Delivery O2 Flow Rate FiO2 12/20/16 07:32 98.0 71 20 169/70 97 12/20/16 00:51 Room Air 12/19/16 17:51 21 12/18/16 00:34 2.0 Intake and Output 12/19/16 12/19/16 12/20/16 15:00 23:00 07:00 Intake Total 840 ml Output Total 850 ml Balance -10 ml Exam Constitutional: alert Respiratory: clear to auscultation, normal air movement Cardiovascular: regular rate and rhythm Gastrointestinal: soft Musculoskeletal: nl extremities to inspection Results Result Diagram: 12/20/16 0415 12/20/16 0415 Results 24 hrs Laboratory Tests Test 12/20/16 04:15 Hemoglobin 12.1 Hematocrit 37.1 Sodium Level 135 Potassium Level 4.3 Chloride Level 101 Carbon Dioxide Level 26 Anion Gap 12 Blood Urea Nitrogen 21 H Creatinine 0.77 Glucose Level 104 Calcium Level 8.3 L Medications Medications Current Medications Miscellaneous Information 1 ea NOTE XX ; Start 12/17/16 at 11:30; Stop 12/21/16 at 11:29 Atenolol (Tenormin) 50 mg BID PO Last administered on 12/20/16 10:03; Admin Dose 50 MG; Start 12/17/16 at 21:00 Isosorbide Mononitrate (Imdur) 30 mg DAILY PO Last administered on 12/20/16 10 :02; Admin Dose 30 MG; Start 12/18/16 at 09:00 Nifedipine (Procardia Xl) 30 mg DAILY PO Last administered on 12/20/16 10:02; Admin Dose 30 MG; Start 12/18/16 at 09:00 Atorvastatin Calcium (Lipitor) 40 mg DAILY@21 PO Last administered on 21:40; Admin Dose 40 MG; Start 12/17/16 at 21:00 Celecoxib (Celebrex) 200 mg DAILY PO Last administered on 12/20/16 10:02; Admin Dose 200 MG; Start 12/18/16 at 09:00 Tramadol HCl (Ultram) 50 mg Q6 PO Last administered on 12/20/16 06:39; Admin Dose 50 MG; Start 12/17/16 at 12:00; Stop 12/20/16 at 11:59 Oxycodone HCl (Roxicodone) 5 mg Q4H PRN PO PAIN LEVEL 1-3; Start 12/17/16 at 14 :30 Oxycodone HCl (Roxicodone) 10 mg Q4H PRN PO PAIN LEVEL 4-7 Last administered on 12/20/16 10:02; Admin Dose 10 MG; Start 12/17/16 at 14:30 Hydromorphone HCl (Dilaudid) 1 mg Q3H PRN IV PAIN LEVEL 8-10; Start 12/17/16 at 14:30 Ondansetron HCl (Zofran Inj) 4 mg Q6H PRN IV NAUSEA AND/OR VOMITING; Start at 14:30 Bisacodyl (Dulcolax Supp) 10 mg Q12H PRN [place] CONSTIPATION Last administered on 10:03; Admin Dose 10 MG; Start 12/17/16 at 14:30 Magnesium Hydroxide (Milk Of Mag) 30 ml BID PRN PO CONSTIPATION Last administered on 12/19/16 18:48; Admin Dose 30 ML; Start 12/17/16 at 14:30 Sodium Biphosphate/ Sodium Phosphate (Fleet Enema) 133 ml DAILY PRN [place] CONSTIPATION; Start 12/17/16 at 14:30 Docusate Sodium (Colace) 100 mg BID PO Last administered on 12/20/16 10:01; Admin Dose 100 MG; Start 12/17/16 at 21:00 Diphenhydramine HCl (Benadryl) 25 mg Q6H PRN PO PRURITUS; Start 12/17/16 at 14: 30 Aspirin (Ecotrin) 325 mg BID PO Last administered on 12/20/16 10:01; Admin Dose 325 MG; Start 12/18/16 at 09:00 Pantoprazole (Protonix Tab) 40 mg BID@ PO Last administered on 12/20/16 06:39; Admin Dose 40 MG; Start 12/17/16 at 18:00 Pregabalin (Lyrica) 50 mg BID PO Last administered on 12/20/16 10:02; Admin Dose 50 MG; Start 12/17/16 at 21:00 ALEXANDER STANLEY MD Dec 20, 2016 10:34
--- NOTE | 2016-12-20 18:26 | DS ---
DATE OF ADMISSION: 12/17/2016 DATE OF DISCHARGE: 12/20/2016 CONDITION UPON DISCHARGE: Stable. ADMITTING DIAGNOSIS: Right knee osteoarthritis. DISCHARGE DIAGNOSIS: Status post right total knee arthroplasty. PROCEDURE PERFORMED: Right total knee arthroplasty. HOSPITAL COURSE: This is an 86-year-old female who was seen in clinic initially complaining of right knee pain. X-rays demonstrated advanced osteoarthritis of the right knee. It was thought she would benefit from right total knee arthroplasty. On 12/17/2016, the patient was admitted and taken to the operating room, where she underwent a right total knee arthroplasty. There were no intraoperative complications. The patient tolerated the procedure well. She was taken to the recovery room in stable condition. Pain was well controlled with oral pain medication. She was started on aspirin, SCDs for DVT prophylaxis. She remained hemodynamically stable and neurovascularly intact throughout her hospital stay. She began physical therapy on postoperative day 1 and continued to make good progress. She was deemed stable for transfer to [facility] on postoperative day 3. Prior to transfer, the incision was inspected and noted to be clean, dry and intact. Dressing changes were done prior to patient going to [facility]. LABORATORY ANALYSIS UPON DISCHARGE: Hemoglobin 12.7, hematocrit 37.1. Chemistry panel showed a slightly elevated BUN of 21 but was otherwise within normal limits. DISCHARGE MEDICATIONS: 1. [place] 7.5/325 mg. 2. Tramadol 50 mg. 3. Protonix 40 mg. 4. Aspirin 325 mg. 5. Lyrica 50 mg. In addition, the patient is to resume all of her normal home medications. DISCHARGE INSTRUCTIONS: The patient will be transferred to [facility] in stable condition. She is to resume a normal diet. Activity includes weightbearing as tolerated on the right lower extremity. She will begin physical therapy at the rehab facility. She will be transferred with the medications noted above and is to resume all of her normal home medications. The patient is to call the office or go to the emergency room for any concerns including increased redness, swelling, drainage, fever or any concerns regarding the operation or site of incision. FOLLOWUP: The patient is to follow up in the office on 12/27/2016. Dictated By: CHRIS PÉREZ/JOSH Conf#: [id number] DID#: [id number] [facility]
== END 2016-12-20 13:00 | DRG 470 ==
LOC: REC 09:04 → MS1 20:30
PROVIDERS: ADMIT Orthopaedic Surgery; ATTEND Orthopaedic Surgery
PROC: 0SRC0J9 Replacement of Right Knee Joint with Synthetic Substitute, Cemented, Open Approach (ICD-10-PCS; principal; 2016-12-17 11:30)
DX: M17.11 Unilateral primary osteoarthritis, right knee (principal); I10 Essential (primary) hypertension; E78.5 Hyperlipidemia, unspecified; M35.3 Polymyalgia rheumatica; I25.10 Atherosclerotic heart disease of native coronary artery without angina pectoris
CPT/HCPCS: 73560; 80048; 85014; 85018; 86850; 86900; 86901; 86920; 87081; 87086; 88304; 88311; 97110; 97116; 97162; 97167; 97530; C1776; C9290; J0131; J0171; J0690; J0697; J0735; J1100; J1885; J2175; J2250; J2274; J2405; J2710; J3010; J3370; J7120

== ENCOUNTER → 2016-12-27 | Outpatient (CLI) | payer MEDICARE, MEDICAID ==
[~2016-12-27] MED LIST changes: -ALEN35TA23 PO; -ASPI-535; +ASPI325T32 PO; -ATEN100T PO; +ATEN50TA PO; -CEFAZOLIN 1 GM INJ ONE; -DEXAMETHASONE 4 MG/ML 1 ML INJ ONE; -EPHEDrine SULFATE 50 MG/5 ML SYG ONE; -ETOMIDATE 20 MG INJ ONE; -FENTAnyl 50 MCG/ML VIAL ONE; -GLYCOPYRROLATE 0.4 MG INJ ONE; -HYDR-2458 PO; +HYDR-905 PO; +ISOS30TA5 PO; -ISOS60TA52; -MIDAZOLAM 1 MG/ML 2 ML INJ ONE; -NEOSTIGMINE 3 MG/3 ML SYRINGE ONE; +OMEP40CA6 PO; -ONDANSETRON 4 MG INJ ONE; -PRED5 PO; +PREG50CA PO; -PROPOFOL 1000 MG INJ ONE; -PROPOFOL 20 ML ONE; -RANI150T5 PO; -ROCURONIUM 50 MG INJ ONE
--- NOTE | 2016-12-27 11:30 | HKNOTE ---
DATE OF SERVICE: 12/27/2016 INTERVAL HISTORY: The patient presents today for her first postoperative evaluation. She is 10 day s status post right total knee arthroplasty. She is doing well overall. She is currently at [facility] rehab facility. She states her knee pain has been improving. Her daughter is here with her delfino ahuja translating. She has been progressing with physical therapy nicely. There have been no advers e events since her surgery. She presents today for her first postoperative evaluation. PHYSICAL EXAMINATION: GENERAL: Today she is alert and oriented x4 and in no acute distress. She is able to ambulate with a front-wheel walker. EXTREMITIES: Exam of the incision demonstrates it to be clean, dry and intact. Jeannine are in plac e. There is no significant soft tissue swelling. There is some mild ecchymosis along the medial as pect of the knee. Range of motion is 0-95 degrees. Varus and valgus forces are stable. Homans sig n is negative. Compartments are soft. She is neurovascularly intact distally. IMAGING: X-rays of the right knee were obtained today and reviewed by me. They demonstrate good an atomic alignment, with no fractures or dislocations identified. ASSESSMENT: Ten days status post right total knee arthroplasty, doing well. PLAN: The jeannine were removed today and Steri-Strips were applied. She is to continue progressing with physical therapy and can continue weightbearing as tolerated with a front-wheel walker. She c an transition to a cane when appropriate as deemed by PT. She is to continue aspirin 325 mg twice d aily for DVT prophylaxis. We will see her back in 4 weeks for a repeat evaluation. Discharge planni ng will begin with [facility] when the patient is stable to go home. Dictated By: CHRIS PÉREZ/JOSH Conf#: [id number] DID#: [id number]
== END | disposition home or self-care (01) ==
LOC: HKI 10:01
PROVIDERS: ATTEND Orthopaedic Surgery
DX: Z47.1 Aftercare following joint replacement surgery (principal); Z96.651 Presence of right artificial knee joint

== ENCOUNTER → 2017-01-24 | Outpatient (CLI) | payer MEDICARE, OTHER | END | disposition home or self-care (01) | LOC: HKI 09:03 | PROVIDERS: ATTEND Orthopaedic Surgery | DX: Z47.1 Aftercare following joint replacement surgery (principal); M17.11 Unilateral primary osteoarthritis, right knee; Z96.651 Presence of right artificial knee joint ==

== ENCOUNTER → 2017-03-28 | Outpatient (CLI) | payer MEDICARE, OTHER ==
[~2017-03-28] MED LIST changes: +ALEN35TA23 PO; +ASPI-535; +ATEN100T PO; +DOXA2TAB61; +ESOM40CA; +HYDR-2458 PO; +ISOS60TA52; +NIT3; +PRED5 PO; +RANI150T5 PO; +VERA120T; +[UNRECOGNIZED DRUG - CODE]
--- NOTE | 2017-03-28 15:32 | RADRPT ---
PROCEDURE: Right knee radiographs. CLINICAL INDICATION: Right knee pain. Postop. TECHNIQUE: Three views. Weight bearing. Frontal, lateral, and patellar view. COMPARISON: 12/17/2016. FINDINGS: There is no fracture or dislocation. Anterior skin emely and surgical drain have been removed. There is a total right knee arthroplasty which appears satisfactory. There is no lytic or blastic lesion. There is no joint effusion. IMPRESSION: 1. Satisfactory postoperative appearance of the right knee. RPTAT: QQ .Jay Penny MD, MD Date Time Electronically viewed and signed by .Jay Penny MD, MD on 03/28/2017 15:31 .R/
== END | disposition home or self-care (01) ==
LOC: HKI 14:52
PROVIDERS: ATTEND Orthopaedic Surgery
DX: Z47.1 Aftercare following joint replacement surgery (principal); Z96.651 Presence of right artificial knee joint; I10 Essential (primary) hypertension; E78.00 Pure hypercholesterolemia, unspecified
CPT/HCPCS: 73562; G0463